=== PATIENT | male | born 1955 ===

== ENCOUNTER 2024-10-18 09:05 | Emergency (ER) | payer OTHER ==
[~2024-10-18] VITALS: Ht 172.7 cm; Wt 83.9 kg
[~2024-10-18 09:05] MED LIST: PANTOPRAZOLE SO40 M2 PO; TADALAFIL10 MG PO
[2024-10-18] MEDS ORDERED: Fluticasone 0.05% Nasal Spray ONE (10:05)
[2024-10-18] MEDS ORDERED: AMOCLA875 PO (10:40)
== END 2024-10-18 11:11 | disposition home or self-care (01) ==
LOC: ER 09:05
DX: J32.9 Chronic sinusitis, unspecified (principal); Z79.899 Other long term (current) drug therapy; Z59.89 Other problems related to housing and economic circumstances
CPT/HCPCS: 71046; 99283-25; A9270